=== PATIENT | female | born 1965 | race Caucasian/White ===

== ENCOUNTER 2019-01-11 20:58 | Observation (INO) ==
--- NOTE | 2019-01-11 21:02 | Emergency Department Note ---
Disposition Clinical Impression: Chest pain Qualifiers: Chest pain type: unspecified Qualified Code(s): R07.9 - Chest pain, unspecified Abdominal pain Qualifiers: Abdominal location: epigastric Qualified Code(s): R10.13 - Epigastric pain Disposition: Admitted As Inpatient Condition: Good Instructions: Chest Pain (ED) Reasons to Return/Additional Instructions: Return to the emergency department if you have any worsening of your current symptoms, or if you develop any new symptoms. Follow-up your emergency department visit by setting up an appointment with your primary care provider within the next 5 days for recheck and management of your abdominal pain and chest pain. Referrals: NONE,PCP [Primary Care Provider] - Forms: ED Satisfaction Letter Time of Disposition: 22:28 General Adult HPI - General Time Seen by Provider: 01/11/19 20:59 - Related Data Previous Rx's Medication Instructions Recorded Cyclobenzaprine [Flexeril] 10 mg PO TID #9 tablet 07/21/18 Allergies Allergy/AdvReac Type Severity Reaction Status Date / Time fluconazole [From Diflucan] Allergy Hives Verified 12/18/16 13:10 naproxen Allergy Itching Verified 12/18/16 13:10 shellfish derived Allergy Anaphylaxis Verified 12/18/16 13:10 Sulfa (Sulfonamide Allergy Hives Verified 12/18/16 13:10 Antibiotics) sulfamethoxazole Allergy Rash Verified 12/18/16 13:10 [From Bactrim] trimethoprim [From Bactrim] Allergy Rash Verified 12/18/16 13:10 codeine AdvReac Vomiting Verified 12/18/16 13:10 Past Medical History - Past Medical History Medical history: Reports: asthma, diabetes, GERD, hypertension Surgical history: Reports: cholecystectomy, hysterectomy Psychiatric history: Reports: anxiety, depression, panic disorder 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 OFFSET PRESS ASSISTANT history - Social History Smoking Status: Never smoker Smokeless Tobacco Status: No Alcohol use: Reports: occasionally Drug use: Reports: none Course Vital Signs Temperature 98.4 F 01/11/19 21:01 Pulse Rate 80 01/11/19 21:01 Respiratory Rate 12 01/11/19 21:01 Blood Pressure 120/72 01/11/19 21:01 O2 Sat by Pulse Oximetry 93 01/11/19 21:01 Temperature 98.4 F 01/11/19 21:01 Pulse Rate 76 01/11/19 22:24 Respiratory Rate 14 01/11/19 22:24 Blood Pressure 114/65 01/11/19 22:24 O2 Sat by Pulse Oximetry 94 01/11/19 22:24 Oxygen Delivery Oxygen Delivery Room Air Medical Decision Making - Lab Data Result diagrams: 01/11/19 21:20 01/11/19 21:20 Lab Results 01/11/19 01/11/19 01/11/19 Range/Units 21:20 21:20 21:20 WBC 10.3 (4.3-11.1) K/mcL RBC 4.38 (3.82-4.97) M/mcL Hgb 12.8 (11.5-15.4) g/dL Hct 38.2 (35.3-44.9) % MCV 87.2 (83.0-100.0) fL MCH 29.2 (28.0-33.3) pg MCHC 33.5 (31.6-35.5) g/dL RDW 12.9 (11.5-14.5) % Plt Count 339 (140-400) K/mcL MPV 9.6 (9.4-12.4) fL Immature Gran % 0.1 (0-4) % Seg Neutrophils % 66.3 % Lymphocytes % 25.8 % Monocytes % 6.6 % Eosinophils % 1.0 % Basophils % 0.2 % Neutrophils # 6.8 (1.6-8.9) K/mcL Lymphocytes # 2.7 (0.6-4.6) K/mcL Monocytes # 0.7 (0.0-1.3) K/mcL Eosinophils # 0.1 (0.0-0.6) K/mcL Basophils # 0.0 (0.0-0.2) K/mcL Sodium 137 (136-145) mEq/L Potassium 3.5 (3.5-5.1) mEq/L Chloride 101 (98-107) mEq/L Carbon Dioxide 25 (23-29) mEq/L BUN 13 (6-20) mg/dL Creatinine 0.57 L (0.60-1.20) mg/dL Est GFR ( Amer) > 60 (> 60) Est GFR (Non-Af Amer) > 60 (> 60) BUN/Creatinine Ratio 23 (6-26) Glucose 178 H (70-105) mg/dL Calculated Osmolality 289 (280-300) Calcium 9.3 (8.6-10.3) mg/dL Total Bilirubin 0.3 (0.3-1.0) mg/dL AST 21 (13-39) Units/L ALT 30 (7-52) Units/L Alkaline Phosphatase 76 (34-104) Units/L Troponin I < 0.03 (< 0.04) ng/mL Serum Total Protein 7.4 (6.4-8.9) g/dL Albumin 4.2 (3.5-5.7) g/dL Globulin 3.2 (2.4-3.5) g/dL Albumin/Globulin Ratio 1.3 (1.1-2.2) Lipase 73 (11-82) Units/L Attestation Statement - Attestation Attestation: I reviewed the residents documentation and agree with the residents assessment and plan of care. I have personally had face to face time with the patient. (Brief History, Brief Exam, and MDM) I personally supervised and was present for the kwan/critical portions of the following procedures completed by the resident: (add procedures performed here). [id number] time provided Patient arrives complaining of chest pain. She appears in no acute distress on arrival. I attest to supervising the resident physician's interpretation of the ECG
[2019-01-11] MEDS ORDERED: Famotidine 20 MG/2 ML VIAL IVP ONE (21:09)
--- NOTE | 2019-01-11 21:09 | Emergency Department Note ---
Disposition Clinical Impression: Chest pain Qualifiers: Chest pain type: unspecified Qualified Code(s): R07.9 - Chest pain, unspecified Abdominal pain Qualifiers: Abdominal location: epigastric Qualified Code(s): R10.13 - Epigastric pain Disposition: Still a Patient Condition: Good Instructions: Chest Pain (ED) Reasons to Return/Additional Instructions: Return to the emergency department if you have any worsening of your current symptoms, or if you develop any new symptoms. Follow-up your emergency depa rtment visit by setting up an appointment with your primary care provider within the next 5 days for recheck and management of your abdominal pain and chest pain. Forms: ED Satisfaction Letter Time of Disposition: 21:28 Chest Pain HPI - General Time Seen by Provider: 01/11/19 20:59 Vital Signs Reviewed: Yes Nursing Notes Reviewed: Yes - History of Present Illness HPI Narrative: 53-year-old female past medical history of obesity, hypertension, reports heart attack in mother which resulted in in her 40s presents to the emergency department with concern for chest pain. Patient reports that last night she was experiencing intermittent right sided jaw pain. States that went away. Today what she was eating dinner, she experienced pain in her epigastrium that radiated upward retrosternally. Sharp in nature. Patient denies any history of heart attack. She does report history of ulcers we are couple years ago she had one that required a lot of medical therapy. She states that some of her symptoms feel similar nature to when she had the ulcer. - Related Data Previous Rx's Medication Instructions Recorded Cyclobenzaprine [Flexeril] 10 mg PO TID #9 tablet 07/21/18 Allergies Allergy/AdvReac Type Severity Reaction Status Date / Time fluconazole [From Diflucan] Allergy Hives Verified 12/18/16 13:10 naproxen Allergy Itching Verified 12/18/16 13:10 shellfish derived Allergy Anaphylaxis Verified 12/18/16 13:10 Sulfa (Sulfonamide Allergy Hives Verified 12/18/16 13:10 Antibiotics) sulfamethoxazole Allergy Rash Verified 12/18/16 13:10 [From Bactrim] trimethoprim [From Bactrim] Allergy Rash Verified 12/18/16 13:10 codeine AdvReac Vomiting Verified 12/18/16 13:10 All systems ED: reviewed and negative except as stated. Review of Systems: As Per HPI Constitutional: Denies: fever Cardiovascular: Reports: chest pain Respiratory: Denies: cough, dyspnea Gastrointestinal: Reports: abdominal pain. Denies: nausea, vomiting Genitourinary: Denies: dysuria Musculoskeletal: Reports: other (Right jaw pain). Denies: back pain Integumentary: Denies: rash Neurological: Denies: numbness, paresthesias Chest Pain PMH - Past Medical History Medical history: Reports: asthma, diabetes, GERD, hypertension Surgical history: Reports: cholecystectomy, hysterectomy Psychiatric history: Reports: anxiety, depression, panic disorder WAREHOUSE MANAGER history: Reports: no WAREHOUSE MANAGER history - Social History Smoking Status: Never smoker Alcohol use: Reports: occasionally Drug use: Reports: none Physical Exam - General Limitations: no limitations General appearance: alert, in no apparent distress - Head Head exam: normocephalic - Eye Eye exam: Present: EOMI - ENT ENT exam: normal oropharynx, mucous membranes moist - Neck Neck exam: Present: trachea midline - Chest Chest inspection: Present: symmetric chest wall rise - Respiratory Respiratory exam: Present: normal lung sounds bilaterally. Absent: respiratory distress, accessory muscle use - Cardiovascular Cardiovascular exam: Present: regular rate, normal rhythm, normal heart sounds - Abdominal Exam Abdominal exam: Present: soft, tenderness. Absent: distention, guarding, rebound, rigidity - Extremities Exam Extremities exam: Present: full ROM, normal capillary refill Course Vital Signs Temperature 98.4 F 01/11/19 21:01 Pulse Rate 80 01/11/19 21:01 Respiratory Rate 12 01/11/19 21:01 Blood Pressure 120/72 01/11/19 21:01 O2 Sat by Pulse Oximetry 93 01/11/19 21:01 Temperature 98.4 F 01/11/19 21:01 Pulse Rate 80 01/11/19 21:01 Respiratory Rate 12 01/11/19 21:01 Blood Pressure 120/72 01/11/19 21:01 O2 Sat by Pulse Oximetry 93 01/11/19 21:01 Chest Pain - [facility] Narrative Medical decision making narrative: 33 year female presents emergency department with concern for epigastric abdominal pain radiating upward into the chest. We are currently ruling out acute coronary syndrome as patient did admit to some worrisome findings with the right jaw pain last night. However, we will managing her as possible gastritis versus peptic ulcer his abdomen was tender in epigastrium physical exam. Abdomen soft, non-peritoneal, no rebound or guarding appreciated, do not suspect perforation at this time or any other surgical abnormality. We will obtain labs. Dr. Siddiqui will continue care and management. - EKG Data EKG attestation: Yes I reviewed and interpreted this EKG. EKG results narrative: 21:11 Heart rate 82 bpm, SC 158 ms, QRS duration 96 segs,[id number],normalaxis. SinusrhythmwithnoischemicSTchanges.[id number]. Heart Score - Score History: Moderately Suspicious EKG: Normal Age: 45-65 Risk Factors: Equal/Greater than 3 risk factor or history of atherosclerotic disease Troponin: Less than normal limit HEART Score Total: 4
[2019-01-11] MEDS ORDERED: 0.9 % Sodium Chloride 1,000 ML IVC ONE (21:10)
[2019-01-11 21:47] LABS: Basophils % 0.2 %; Eosinophils # 0.1 K/mcL (0.0-0.6); Hematocrit 38.2 % (35.3-44.9); Hemoglobin 12.8 g/dL (11.5-15.4); Immature Granulocytes % 0.1 % (0-4); Lymphocytes # 2.7 K/mcL (0.6-4.6); Lymphocytes % 25.8 %; Mean Corpuscular HGB Conc 33.5 g/dL (31.6-35.5); Mean Corpuscular Hemoglobin 29.2 pg (28.0-33.3); Mean Corpuscular Volume 87.2 fL (83.0-100.0); Mean Platelet Volume 9.6 fL (9.4-12.4); Monocytes # 0.7 K/mcL (0.0-1.3); Monocytes % 6.6 %; Neutrophils # 6.8 K/mcL (1.6-8.9); Platelet Count 339 K/mcL (140-400); Red Blood Count 4.38 M/mcL (3.82-4.97); Red Cell Distribution Width 12.9 % (11.5-14.5); Segmented Neutrophils % 66.3 %; White Blood Count 10.3 K/mcL (4.3-11.1)
[2019-01-11 22:06] LABS: Alanine Aminotransferase 30 Units/L (7-52); Albumin 4.2 g/dL (3.5-5.7); Albumin/Globulin Ratio 1.3 (1.1-2.2); Alkaline Phosphatase 76 Units/L (34-104); Aspartate Amino Transferase 21 Units/L (13-39); BUN/Creatinine Ratio 23 (6-26); Bilirubin,Total 0.3 mg/dL (0.3-1.0); Blood Urea Nitrogen 13 mg/dL (6-20); Calcium 9.3 mg/dL (8.6-10.3); Carbon Dioxide 25 mEq/L (23-29); Chloride 101 mEq/L (98-107); Globulin 3.2 g/dL (2.4-3.5); Glucose 178 mg/dL (70-105); Osmolality,Calculated 289 (280-300); Potassium 3.5 mEq/L (3.5-5.1); Sodium 137 mEq/L (136-145); Total Protein 7.4 g/dL (6.4-8.9); Troponin I < 0.03 ng/mL (< 0.04); eGFR For African Americans > 60 (> 60); eGFR For Non-African Americans > 60 (> 60)
[2019-01-11] MEDS ORDERED: methylPREDNISolone 125 MG/2 ML VIAL IVP ONE (22:53)
[2019-01-12] MEDS ORDERED: Pantoprazole 40 MG VIAL IVP ONE (01:52)
[2019-01-12] MEDS ORDERED: *HR* Promethazine 25 MG/ML VIAL IVP PRN ×2 (02:01→03:37)
[2019-01-12] MEDS ORDERED: GI Cocktail 40 ML EACH PO ONE ×2 (02:01→15:24)
[2019-01-12] MEDS ORDERED: *HR* Dextrose 50 % in Water (Syg) 50 ML SYRINGE IVP PRN (03:32)
[2019-01-12] MEDS ORDERED: Dextrose Gel 15 GM/37.5 ML TUBE PO PRN ×2 (03:32)
[2019-01-12] MEDS ORDERED: D5% in Water 1,000 ML IVC PRN (03:32)
[2019-01-12] MEDS ORDERED: Acetaminophen 325 MG TABLET PO PRN (03:37)
[2019-01-12] MEDS ORDERED: Naloxone 0.4 MG/ML INJ IVP PRN (03:37)
[2019-01-12] MEDS ORDERED: traMADol 50 MG TABLET PO PRN (03:37)
--- NOTE | 2019-01-12 04:11 | Internal Med History&Physical ---
Date of Encounter: 01/12/19 Time of Encounter: 02:30 Internal Medicine - H&P: HPI Chief complaint: CP Admitted From: Emergency Dept Plans for Post Hospital Care: Home History of present illness: Ms. Peralta is a 53 year old female w/PMH of asthma, diabetes controlled with metformin, GERD, and HTN presents from the ED with chief complaint of burning in central chest with jaw pain. Patient states this is been intermittently occurring for the past 4 years. Patient now states symptoms have worsened. Patient has history of gastric ulcer which she states symptoms feel similar to. Familial history of mother having massive heart attack at the age of 46. No alleviating or aggravating factors. Associated symptoms: Nausea and diaphoresis. Risk factors: HTN, familial history of CAD and MT, and obesity. Patient reports epigastric pain and weakness but denies recent illness, fever, chills, vomiting, headache, changes in vision, unusual bleeding, shortness of breath, abdominal pain, diarrhea, constipation, numbness, tingling, and dizziness, lightheadedness, pre-syncope, or syncope. Past Med Surg Social Fam HX - Past Medical History Source: patient, old records reviewed Medical history: asthma, diabetes, GERD, hypertension Additional medical history: Vit B 12 deficiency Psychiatric history: anxiety, depression, panic disorder - Past Surgical History Surgical History: cholecystectomy, hysterectomy Additional surgical history: bladder sling, colonoscopy - Social History Smoking Status: Never smoker Smokeless Tobacco Status: No Alcohol use: occasionally Drug use: none Current living situation: Home Activity Level: Independent ambulation Recent Out of Country Travel Within the Last 8 Weeks: No Exposure or Possible Exposure to Illness During Travel: No - Family History Father Race: Family Member Ethnicity: Non- Living Status: Age at : 50 Cause of : PNA Hx Family Respiratory Disorders: Yes (Emphysema, TB, PNA) Mother Race: Family Member Ethnicity: Non- Living Status: Age at : 46 Cause of : Massive MT Hx Family Cardiac Disorders: Yes (Massive MT at 46 yo) Hx Family Endocrine Disorder: Yes (DM) Sister Race: Family Member Ethnicity: Non- Living Status: Age at : 49 Cause of : Lung cancer Hx Family Cancer: Yes (Lung) Brother Race: Family Member Ethnicity: Non- Living Status: Age at : 52 Cause of : Lung cancer Hx Family Cancer: Yes (Lung) Internal Medicine - H&P: Meds Cyanocobalamin (Vitamin B-12) [Vitamin B12] 1,000 mcg PO DAILY 01/12/19 [History] LORazepam [Ativan] 0.5 mg PO BID PRN 01/12/19 [History] Losartan/Hydrochlorothiazide [Losartan-Hctz 100-25 mg Tab] 1 each PO DAILY 01/12/19 [History] metFORMIN [Glucophage] 250 mg PO BID 01/12/19 [History] Allergy/AdvReac Type Severity Reaction Status Date / Time famotidine [From Pepcid] Allergy Hives Verified 01/11/19 23:06 fluconazole [From Diflucan] Allergy Hives Verified 12/18/16 13:10 naproxen Allergy Itching Verified 12/18/16 13:10 shellfish derived Allergy Anaphylaxis Verified 12/18/16 13:10 Sulfa (Sulfonamide Allergy Hives Verified 12/18/16 13:10 Antibiotics) sulfamethoxazole Allergy Rash Verified 12/18/16 13:10 [From Bactrim] trimethoprim [From Bactrim] Allergy Rash Verified 12/18/16 13:10 codeine AdvReac Vomiting Verified 12/18/16 13:10 All Systems PM: A 10-system review of systems was performed and is negative for pertinent findings except as documented above in the HPI. - Constitutional Constitutional: as per HPI, weakness, no chills, no fever(s), no night sweats - EENT Eyes: no change in vision, no discharge, no pain, no photophobia Ears: no ear discharge, no ear pain, no tinnitus Nose, mouth and throat: no dysphagia, no nasal discharge, no neck pain, no sore throat - Breasts Breasts: as per HPI - Cardiovascular Cardiovascular ROS IM: as per HPI, no chest pain, no diaphoresis, no dyspnea, no lightheadedness, no palpitations, no syncope - Respiratory Respiratory: no cough, no dyspnea, no wheezing, no excessive phlegm production - Gastrointestinal Gastrointestinal: as per HPI, nausea, no abdominal pain, no diarrhea, no hematemesis, no hematochezia, no melena, no vomiting - Genitourinary Genitourinary: no change in urinary stream, no dysuria, no flank pain, no hematuria Menstruation: as per HPI, post hysterectomy - Musculoskeletal Musculoskeletal ROS IM: no numbness, no tingling - Integumentary Integumentary IM: no rash, no unusual bruising - Neurological Neurological ROS: no confusion, no convulsions, no focal weakness, no numbness, no tingling, no tremor(s) - Psychiatric Psychiatric: as per HPI, anxiety, depression, panic attacks - Endocrine Endocrine IM: as per HPI - Hematologic/Lymphatic Hematologic/Lymphatic: no easy bruising - Allergic/Immunologic Allergic/Immunologic: as per HPI - Constitutional Vitals: Temp Pulse Resp BP Pulse Ox 98.1 F 79 14 110/69 94 01/12/19 03:24 01/12/19 03:24 01/12/19 01:04 01/12/19 03:24 01/12/19 03:24 General appearance: Present: cooperative, mild distress, A&O X 3, pleasant, obese, answers questions appropriately Exam: Patient examined at bedside. Patient reports burning in central chest. Denies any other sx or complaints on examination. VS: 98.1F temp, HR 79, RR 14, BP 110/69, SPO2 94% on room air. - Head Head exam: Present: atraumatic, normocephalic - Eye Eye exam: Present: PERRL, conjuntiva pink, sclera anicteric Pupils: Present: PERRL - ENT ENT exam: Present: normal exam - Neck Neck exam general surgery: Present: supple, trachea midline. Absent: lymphadenopathy - Respiratory Respiratory exam: Present: CTAB. Absent: accessory muscle use, rales, rhonchi, wheezes - Cardiovascular Cardiovascular exam: Present: RRR, +S1, +S2. Absent: diastolic murmur, gallop, rubs, systolic murmur - GI/Abdominal GI/Abdominal exam: Present: normal bowel sounds, soft, no peritoneal signs. Absent: distended, tenderness - Rectal Rectal exam: Present: deferred - Additional comments: exam deferred. - Extremities Exam Extremities exam: Present: warm, radial pulses palpable and symmetrical. Absent: calf tenderness, cyanotic, pedal edema - Back Exam Back exam: Present: normal inspection - Neurological Exam Neurological exam: Present: alert, CN II-XII intact, oriented X3, no focal deficits. Absent: pronater drift, facial droop, speech deficit - Psychiatric Psychiatric exam: Present: anxious - Skin Skin exam: Present: dry, intact Internal Med - H&P Results - Labs CBC & Chem 7: 01/12/19 03:53 01/12/19 03:53 Labs: Short CBC 01/11/19 Range/Units 21:20 WBC 10.3 (4.3-11.1) K/mcL Hgb 12.8 (11.5-15.4) g/dL Hct 38.2 (35.3-44.9) % Plt Count 339 (140-400) K/mcL Neutrophils # 6.8 (1.6-8.9) K/mcL BMP 01/11/19 21:20 Sodium 137 Potassium 3.5 Chloride 101 Carbon Dioxide 25 BUN 13 Creatinine 0.57 L Glucose 178 H Calcium 9.3 Cardiac Enzymes 01/11/19 Range/Units 21:20 Troponin I < 0.03 (< 0.04) ng/mL Liver Function 01/11/19 Range/Units 21:20 Total Bilirubin 0.3 (0.3-1.0) mg/dL AST 21 (13-39) Units/L ALT 30 (7-52) Units/L Alkaline Phosphatase 76 (34-104) Units/L Albumin 4.2 (3.5-5.7) g/dL - Impressions ITS Impressions Chest X-Ray 01/11/19 21:01 IMPRESSION: No acute process. D/ / Regan Navarro MD / Regan Navarro MD Interpreting Provider: Regan Navarro MD - Diagnostic Studies Chest x-ray Additional comments: Impressions Chest X-Ray 01/11/19 21:01 IMPRESSION: No acute process. D/ / Regan Navarro MD / Regan Navarro MD Interpreting Provider: Regan Navarro MD - Assessment and Plan (1) Chest pain Current Visit: Yes Status: Acute Assessment and plan: Acute burning in central chest with jaw pain. Gastric versus cardio. Patient states this is been intermittently occurring for the past 4 years. Patient now states symptoms have worsened. Patient has history of gastric ulcer which she states symptoms feel similar to. Familial history of mother having massive heart attack at the age of 46. No alleviating or aggravating factors. Associated symptoms: Nausea and diaphoresis. Risk factors: HTN, familial history of CAD and MT, and obesity. ASA daily. 80 mg Lipitor once. Initial troponin <0.03. Trending. Echocardiogram. NPO now for ordered nuclear stress test. Consider Cardiology consult if troponins, Echocardiogram, and/or stress test results are abnormal. Patient is high risk for cardiac event and further morbidity based on current unstable angina, ongoing symptoms for 4+ years which have worsened, familial hx of mother dying from a massive MT at the age of 46; and risk factors of DM, HTN, and obesity. Observation. Qualifiers: Chest pain type: other chest pain Qualified Code(s): R07.89 - Other chest p ain; R07.8 - Other chest pain (2) Nausea Current Visit: Yes Status: Acute Assessment and plan: Acute nausea associated w/current CP burning and pain. 12.5 mg IVP Phenergan Q6HR PRN for N/V. 40 mg IVP Protonix BID ordered. (3) HTN (hypertension) Current Visit: Yes Status: Chronic Assessment and plan: Hx of chronic HTN. Monitor pt. and VS. Holding beta alvina d/t impending nuclear stress test. IVP hydralazine 10 mg every 6 hours when necessary with parameters ordered for HTN. Qualifiers: Hypertension type: essential hypertension Qualified Code(s): I10 - Essential (primary) hypertension (4) Diabetes Current Visit: Yes Status: Chronic Assessment and plan: Hx of chronic diabetes controlled by metformin. Holding metformin in case imaging is needed to preserve kidney function. Low-dose correcting sliding scale insulin and hypoglycemic protocol ordered. A1c in a.m. labs. BG checks and SS insulin Q6HR WHILE PATIENT IS NPO. BG checks and SS insulin ACHS WHEN PATIENT NO LONGER NPO AND HAS DIET ORDERED. Qualifiers: Diabetes mellitus type: type 2 Diabetes mellitus half-way insulin use: without half-way use Diabetes mellitus complication status: with other specified complication Qualified Code(s): E11.69 - Type 2 diabetes mellitus with other specified complication (5) GERD (gastroesophageal reflux disease) Current Visit: Yes Status: Chronic Assessment and plan: Hx of chronic GERD. Pt. reports hx of gastric ulcer and states current symptoms feel similar. Protonix 40 mg IVP BID orderes. GI cocktail. 12.5 mg. IVP Phenergan Q6HR for N/V. Qualifiers: Esophagitis presence: esophagitis presence not specified Qualified Code(s): K21.9 - Gastro-esophageal reflux disease without esophagitis (6) Asthma Current Visit: Yes Status: Chronic Assessment and plan: Hx of chronic asthma. Stable. Will add IH as needed. Supplemental O2 with titration and SPO2 monitoring. Qualifiers: Asthma severity: mild Asthma persistence: intermittent Asthma complication type: uncomplicated Qualified Code(s): J45.20 - Mild intermittent asthma, uncomplicated (7) DVT prophylaxis Current Visit: Yes Status: Acute Assessment and plan: Heparin 5,000 units SQ Q8HR for DVT prophylaxis. Monitor pt. for signs of bleeding. - Time Spent With Patient Total time spent is greater than 50% in coordination of care (as documented) at patient's floor/unit and/or counseling patient: Greater than 35 minutes
[2019-01-12 04:12] LABS: Hematocrit 39.9 % (35.3-44.9); Hemoglobin 13.3 g/dL (11.5-15.4); Mean Corpuscular HGB Conc 33.3 g/dL (31.6-35.5); Mean Corpuscular Hemoglobin 28.9 pg (28.0-33.3); Mean Corpuscular Volume 86.6 fL (83.0-100.0); Mean Platelet Volume 9.6 fL (9.4-12.4); Platelet Count 354 K/mcL (140-400); Red Blood Count 4.61 M/mcL (3.82-4.97); White Blood Count 7.6 K/mcL (4.3-11.1)
[2019-01-12] MEDS ORDERED: Nitroglycerin 0.4 MG TAB.SUBL SL PRN (04:33)
[2019-01-12 04:34] LABS: BUN/Creatinine Ratio 22 (6-26); Blood Urea Nitrogen 13 mg/dL (6-20); Calcium 9.1 mg/dL (8.6-10.3); Carbon Dioxide 21 mEq/L (23-29); Chloride 105 mEq/L (98-107); Chol/HDL Ratio 4.7 (0-4.9); Cholesterol 182 mg/dL (< 200); Glucose 210 mg/dL (70-105); HDL Cholesterol 39 mg/dL (40-59); LDL Cholesterol,Calculated 123 mg/dL (0-99); Magnesium 1.8 mg/dL (1.6-2.6); Osmolality,Calculated 296 (280-300); Potassium 3.3 mEq/L (3.5-5.1); Sodium 140 mEq/L (136-145); Triglycerides 101 mg/dL (< 150); Troponin I < 0.03 ng/mL (< 0.04); eGFR For African Americans > 60 (> 60); eGFR For Non-African Americans > 60 (> 60)
[2019-01-12] MEDS: *HR* Heparin 5,000 UNIT/ML VIAL SQ SCH ×2 (05:06→14:32)
[2019-01-12] MEDS ORDERED: Pantoprazole 40 MG VIAL IVP SCH (06:00)
[2019-01-12] MEDS ORDERED: Insulin LISPRO 300 UNITS/3 ML VIAL SQ SCH ×4 (06:00→21:00)
[2019-01-12] MEDS ORDERED: Regadenoson 0.4 MG/5 ML SYRINGE IVP ONE (06:28)
[2019-01-12] MEDS ORDERED: Aspirin Enteric Coated 81 MG Tablet PO SCH (09:00)
[2019-01-12 10:29] LABS: Estimated Average Glucose 154 mg/dl
[2019-01-12 15:28] VITALS: BP 121/69
--- NOTE | 2019-01-12 16:27 | Discharge Summary ---
- NOTES TO OUTPATIENT PROVIDER Notes to Outpatient Provider: Patient was admitted for chest pain. Patient will stress test done which was negative. Patient is to follow-up with PCP and also needs outpatient echocardiogram done. Date of Encounter: 01/12/19 Time of Encounter: 16:20 - Discharge Diagnosis (1) Chest pain Priority: Primary Status: Acute Qualifiers: Chest pain type: other chest pain Qualified Code(s): R07.89 - Other chest pain; R07.8 - Other chest pain (2) Nausea Priority: Secondary Status: Acute (3) Diabetes Priority: Secondary Status: Chronic Qualifiers: Diabetes mellitus type: type 2 Diabetes mellitus watermelon harvesting supervisor insulin use: without watermelon harvesting supervisor use Diabetes mellitus complication status: with other sp ecified complication Qualified Code(s): E11.69 - Type 2 diabetes mellitus with other specified complication (4) Asthma Priority: Secondary Status: Chronic Qualifiers: Asthma severity: mild Asthma persistence: intermittent Asthma complication type: uncomplicated Qualified Code(s): J45.20 - Mild intermittent asthma, uncomplicated (5) GERD (gastroesophageal reflux disease) Priority: Secondary Status: Chronic Qualifiers: Esophagitis presence: esophagitis presence not specified Qualified Code(s): K21.9 - Gastro-esophageal reflux disease without esophagitis (6) HTN (hypertension) Priority: Secondary Status: Chronic Qualifiers: Hypertension type: essential hypertension Qualified Code(s): I10 - Essential (primary) hypertension (7) DVT prophylaxis Priority: Secondary Status: Acute Hospital course: Ms. Peralta is a 53 year old female with past medical history of hypertension, GERD and prediabetes presented to the hospital complaining of chest pain. Patient troponin trended was negative. Patient had a stress test done. Which was negative. Patient has a nuclear stress test. Patient nuclear stress test was negative for ischemia. Pharmacological stress test was nondiagnostic due to base line ST and T changes. Pt was discharged home in stable condition and advised to get Echo done in one week. Follow up with PCP in 1 week. Pt was discharged home on omeprazole and maalox. Discharge discussed with: patient, family, nurse - Time Spent with Patient Total time spent providing and/or coordinating discharge services: 35 Time spent: Greater than 30 minutes, D/C greater than 8 hours after Admission - Discharge Medications Prescriptions: New Mag Hydrox/Al Hydrox/Simeth [Maalox] 30 ml PO Q6HR PRN 7 Days #800 ml PRN Reason: Indigestion Omeprazole [PriLOSEC] 40 mg PO DAILY 15 Days #15 cap Continued metFORMIN [Glucophage] 250 mg PO BID Losartan/Hydrochlorothiazide [Losartan-Hctz 100-25 mg Tab] 1 each PO DAILY LORazepam [Ativan] 0.5 mg PO BID PRN PRN Reason: anxiety Cyanocobalamin (Vitamin B-12) [Vitamin B12] 1,000 mcg PO DAILY Home Medications: Cyanocobalamin (Vitamin B-12) [Vitamin B12] 1,000 mcg PO DAILY 01/12/19 [History] LORazepam [Ativan] 0.5 mg PO BID PRN 01/12/19 [History] Losartan/Hydrochlorothiazide [Losartan-Hctz 100-25 mg Tab] 1 each PO DAILY 01/12/19 [History] Mag Hydrox/Al Hydrox/Simeth [Maalox] 30 ml PO Q6HR PRN 7 Days #800 ml 01/12/19 [Rx] Omeprazole [PriLOSEC] 40 mg PO DAILY 15 Days #15 cap 01/12/19 [Rx] metFORMIN [Glucophage] 250 mg PO BID 01/12/19 [History] Allergies/Adverse Reactions: Allergy/AdvReac Type Severity Reaction Status Date / Time famotidine [From Pepcid] Allergy Hives Verified 01/11/19 23:06 fluconazole [From Diflucan] Allergy Hives Verified 12/18/16 13:10 naproxen Allergy Itching Verified 12/18/16 13:10 shellfish derived Allergy Anaphylaxis Verified 12/18/16 13:10 Sulfa (Sulfonamide Allergy Hives Verified 12/18/16 13:10 Antibiotics) sulfamethoxazole Allergy Rash Verified 12/18/16 13:10 [From Bactrim] trimethoprim [From Bactrim] Allergy Rash Verified 12/18/16 13:10 codeine AdvReac Vomiting Verified 12/18/16 13:10 Date of admission: 01/11/19 23:34 Primary care physician: PCP NONE Discharging clinician: Mal Cornell - Constitutional Vitals: Temp Pulse Resp BP Pulse Ox 98.1 F 73 16 121/69 95 01/12/19 15:23 01/12/19 15:23 01/12/19 15:23 01/12/19 15:23 01/12/19 15:23 General appearance: Present: cooperative, A&O X 3, pleasant, obese, answers questions appropriately Exam: General: A & O 3, In no acute distress HENNT: PERRLA. Head atraumatic and makes supple CVS S1 and S2 regular, no murmur RS: Clear to air entry bilaterally, no wheeze, no crackles Abdomen: Soft and nontender. Bowel sounds normal 4 Extremities: No cyanosis, clubbing, and edema Neurology: Cranial II-XII normal. Motor strength 5/5 bilaterally. Sensation intact - Patient Status Disposition: Home, Self-Care Overall status at discharge: patient is progressing back to baseline - Discharge Instructions Follow Up With: NONE,PCP [Primary Care Provider] - - Diet and Activity Activity: increase activity as tolerated Diet: diabetic diet, low salt diet
--- NOTE | 2019-01-14 11:24 | Electrocardiograph Report ---
[facility] Test Date: 2019-01-11 Pat Name: Poonam Peralta Department: [id number] Room: [facility] Gender: F Pony Edger: : [id number] Requested By: Yasir Siddiqui Order Number: [id number] Reading MD: Kristian Conley Measurements Intervals Council Rate: 82 P: 41 NM: 158 QRS: 12 QRSD: 96 T: 10 QT: 364 QTc: 426 Interpretive Statements Sinus rhythm wnl Electronically Signed On 01-14-2019 11:22:22 EDT by Kristian Conley
== END 2019-01-12 17:49 | disposition home or self-care (01) ==
LOC: 2ANU 20:58 → EMEROOARM 20:58 → SUATTDRO 23:34 → 2ANU 01-12 00:26
PROVIDERS: ADMIT Internal Medicine; ATTEND Family Medicine